=== PATIENT | male | born 1950 | race Caucasian/White ===

== ENCOUNTER 2019-09-19 09:18 | Emergency (ER) | payer MEDICARE, OTHER ==
[2019-09-19 09:29] VITALS: BP 131/66
[2019-09-19] MEDS ORDERED: LISI1TAB25 (09:36)
[2019-09-19] MEDS ORDERED: ATOR40TA70 (09:36)
[2019-09-19] MEDS ORDERED: DOXY100C2 (09:36)
--- NOTE | 2019-09-19 09:38 | ED Lower Extremity ---
General Chief Complaint: Lower Extremity Stated Complaint: RT FOOT INJ Source: patient Exam Limitations: no limitations History of Present Illness Date Seen by Provider: Sep 19, 2019 Time Seen by Provider: 09:33 Initial Comments Heavy piece of iron fell on his right foot yesterday, weighing about 150lbs. No other injury. + pain and swelling. + bruising. Allergies and Home Medications Allergies Coded Allergies: clarithromycin (Verified Allergy, Unknown, weakness, 09/19/19) Home Medications Bacitracin/Polymyxin B Sulfate 28.3 Gm Oint...g., 28.3 GM TP BID Prescribed by: LISSETTE CANTU on 09/19/19 1010 Ibuprofen 800 Mg Tablet, 800 MG PO Q8H PRN for PAIN Prescribed by: LISSETTE CANTU on 09/19/19 1010 Patient Home Medication List Home Medication List Reviewed: Yes Review of Systems Constitutional: no symptoms reported Musculoskeletal: see HPI Skin: see HPI Past Djwpwfk-Otgfyk-Fyhzjy Hx Past Med/Social Hx: Reviewed Nursing Past Med/Soc Hx Patient Social History Recent Foreign Travel: No Contact w/Someone Who Travel: No Physical Exam Vital Signs Vital Signs - First Documented 09/19/19 09:29 Temp 36.7 Pulse 59 Resp 16 B/P (MAP) 131/66 (87) Pulse Ox 98 Capillary Refill : Height, Weight, BMI Height: '" Weight: lbs. oz. kg; BMI Method: General Appearance: WD/WN, no apparent distress Legs: bilateral leg non-tender, bilateral leg normal inspection, bilateral leg normal range of motion, bilateral leg no evidence of injury Ankles: bilateral ankle non-tender, bilateral ankle normal inspection, bilateral ankle normal range of motion, bilateral ankle no evidence of injury Feet: right foot bone tenderness, right foot limited range of motion, right foot pain, right foot soft tissue tenderness, right foot swelling Neurologic/Psychiatric: no motor/sensory deficits, alert, normal mood/affect Skin: ecchymosis (distal right foot and 3-5th toes) Progress/Results/Core Measures Results/Orders My Orders Orders - LISSETTE CANTU DO Foot 3 View Right (09/19/19 09:31) Vital Signs/I&O 09/19/19 09:29 Temp 36.7 Pulse 59 Resp 16 B/P (MAP) 131/66 (87) Pulse Ox 98 Progress Progress Note : Progress Note Advised to be NWB until told otherwise by Ortho. Given Ortho protective shoe (not a boot) and he has his own crutches for use. Given multiple contacts for follow-up and advised to be seen in the next 1 wk. Strongly urged RICE, he declined pain meds. Also encouraged skin care due to swelling and bruising and to watch for skin breakdown. Diagnostic Imaging Diagonstic Imaging: Xray Plain Films/CT/US/NM/MRI: other (right foot) Comments distal 5th MT Fx and prox phalynx Fx's of both 4th and 5th toes Departure Impression Primary Impression: Fracture of foot Qualified Codes: S92.901A - Unspecified fracture of right foot, initial encounter for closed fracture Additional Impression: Fracture of toe Qualified Codes: S92.911A - Unspecified fracture of right toe(s), initial encounter for closed fracture Disposition: HOME, SELF-CARE Condition: Stable Departure-Patient Inst. Decision time for Depature: 10:07 Referrals: SELF,PATRIC DEGROOT (PCP/Family) Primary Care Physician [facility] [address] [place] [address] [facility] Patient Instructions: Foot Fracture (DC), Toe Fracture (DC) Scripts Bacitracin/Polymyxin B Sulfate (Polysporin Ointment) 28.3 Gm Oint...g. 28.3 GM TP BID, #1 TUBE Prov: LISSETTE CANTU DO 09/19/19 Ibuprofen (Ibuprofen) 800 Mg Tablet 800 MG PO Q8H PRN for PAIN, #30 TAB 0 Refills Prov: LISSETTE CANTU DO 09/19/19 LISSETTE CANTU DO Sep 19, 2019 09:37
--- OUTSIDE RECORDS SUMMARY | 2019-09-19 09:45 | XMS REPORT | Continuity of Care Document ---
Demographics Preferred Language Unknown Marital Status Unknown Rastafari Affiliation Unknown Race Unknown Ethnic Group Unknown Author Organization Unknown Address Unknown Phone Unavailable Allergies There is no data. Medications There is no data. Problems There is no data. Procedures There is no data. Results Test Result Range PSA - 07/05/19 09:10 PSA, TOTAL 1.9 ng/mL < OR = 4.0 TSH - 07/05/19 09:10 TSH 3.21 mIU/L 0.40-4.50 Encounters ACCT No. Visit Date/Time Discharge Status Pt. Type Provider Facility Loc./Unit Complaint [id number] 07/05/2019 09:00:00 Document Registration
[2019-09-19] MEDS ORDERED: BACI28.35 TP (10:10)
[2019-09-19] MEDS ORDERED: IBUP-1780 PO (10:10)
--- NOTE | 2019-09-19 12:06 | Diagnostic Imaging Report ---
INDICATION: Dropped a heavy object onto right foot. TIME OF EXAM: 9:46 AM FINDINGS: 3 views of the right foot were obtained. There are multiple fractures present. There is an obliquely oriented fracture of the distal 5th metatarsal without significant displacement or angulation. There is a comminuted fracture at the base of the proximal phalanx of the 5th toe. There also appears to be a fracture of the middle phalanx of the 5th toe as well as the distal phalanx of the 5th toe. No significant displacement is seen. In addition, there is a fracture at the proximal aspect of the proximal phalanx, 4th toe. There is also mid shaft fracture involving the middle phalanx of the 4th toe as well as a mid shaft fracture of the distal phalanx of the 4th toe. The 1st, 2nd and 3rd phalanges appear to be intact. The 1st through 4th metatarsals appear to be intact. The midfoot and hindfoot are unremarkable. There is moderate soft tissue swelling along the dorsum of the foot. IMPRESSION: Fractures involving the 4th and 5th toes as well as the 5th metatarsal, as described. Dictated by: Dictated on workstation # [id number]
== END 2019-09-19 10:16 | disposition home or self-care (01) ==
LOC: ER FS 09:22
DX: S92.514A Nondisplaced fracture of proximal phalanx of right lesser toe(s), initial encounter for closed fracture (principal); S92.524A Nondisplaced fracture of middle phalanx of right lesser toe(s), initial encounter for closed fracture; S92.534A Nondisplaced fracture of distal phalanx of right lesser toe(s), initial encounter for closed fracture; S92.351A Displaced fracture of fifth metatarsal bone, right foot, initial encounter for closed fracture; W22.8XXA Striking against or struck by other objects, initial encounter
CPT/HCPCS: 73630

== ENCOUNTER → 2019-10-10 | Outpatient (CLI) | payer MEDICARE, OTHER ==
[~2019-10-10] MED LIST: ATOR40TA70; BACI28.35 TP; DOXY100C2; IBUP-1780 PO; LISI1TAB25
--- NOTE | 2019-10-10 09:05 | Diagnostic Imaging Report ---
INDICATION: Injury, followup. EXAMINATION: Right foot on 10/10/2019. COMPARISON: 09/19/2019. FINDINGS: The comminuted fractures of the 4th and 5th toes which include all phalanges are fairly similar to the previous examination without significant interval callus formation. The alignment is unchanged. The oblique fracture of the distal 5th metatarsal is also stable without significant callus appreciated. There is a vague lucency noted along the dorsum of the navicular, likely a chronic process, perhaps a spur; however, correlation for any point tenderness is recommended. There is cast-like material overlying the foot somewhat obscuring fine bony detail. IMPRESSION: 1. Stable appearing 4th and 5th phalangeal fractures. 2. Stable 5th metatarsal fracture. 3. Lucency along the navicular, see above description. Dictated by: Dictated on workstation # [id number]
== END ==
LOC: RAD FS 08:47
PROVIDERS: ATTEND Nurse Practitioner
DX: S92.421D Displaced fracture of distal phalanx of right great toe, subsequent encounter for fracture with routine healing (principal); S92.521D Displaced fracture of middle phalanx of right lesser toe(s), subsequent encounter for fracture with routine healing; S92.511D Displaced fracture of proximal phalanx of right lesser toe(s), subsequent encounter for fracture with routine healing; S92.352D Displaced fracture of fifth metatarsal bone, left foot, subsequent encounter for fracture with routine healing
CPT/HCPCS: 73630

== ENCOUNTER → 2019-11-10 | Outpatient (CLI) | payer MEDICARE, OTHER ==
--- NOTE | 2019-11-10 09:32 | Diagnostic Imaging Report ---
INDICATION: Follow-up right foot injury. Time of exam 8:37 AM Correlation is made with prior radiograph from 10/10/2019. Fractures involving the proximal, middle and distal phalanges of the 4th and 5th toes are again noted. Fracture lines remain clearly visible. No significant callus formation is seen. The obliquely oriented fracture of the distal 5th metatarsal is also clearly visible without significant callus formation. No other fractures are identified. Midfoot and hindfoot are unremarkable. IMPRESSION: No significant change in the fractures involving the 4th and 5th toes as well as the 5th metatarsal when compared with exam one month earlier. Fracture lines remain clearly visible. No significant callus formation is seen. Dictated by: Dictated on workstation # [id number]
== END ==
LOC: RAD FS 08:29
PROVIDERS: ATTEND Nurse Practitioner
DX: S92.351D Displaced fracture of fifth metatarsal bone, right foot, subsequent encounter for fracture with routine healing (principal); S92.911D Unspecified fracture of right toe(s), subsequent encounter for fracture with routine healing; S97.81XD Crushing injury of right foot, subsequent encounter; X58.XXXD Exposure to other specified factors, subsequent encounter
CPT/HCPCS: 73630

== ENCOUNTER 2019-11-21 07:33 | Outpatient (RCR) | payer MEDICARE, OTHER ==
[~2019-11-21] VITALS: Ht 187 cm; Wt 113.6 kg
[~2019-11-21 07:33] MED LIST changes: +ASPI-586 PO; -ATOR40TA70; +ATOR40TA70 PO; -DOXY100C2; +DOXY100C2 PO; +FISH1CAP15 PO; +GINK120C PO; +LISI2.5T PO; +UBID100C17 PO
== END 2019-11-21 14:52 | disposition home or self-care (01) ==
LOC: PREOP 07:33
PROVIDERS: ATTEND Podiatrist Foot & Ankle Surgery
DX: Z01.812 Encounter for preprocedural laboratory examination (principal); Z11.59 Encounter for screening for other viral diseases; S92.351A Displaced fracture of fifth metatarsal bone, right foot, initial encounter for closed fracture; S92.501A Displaced unspecified fracture of right lesser toe(s), initial encounter for closed fracture
CPT/HCPCS: 87635

== ENCOUNTER 2019-11-25 11:27 | Day surgery (SDC) | payer MEDICARE, OTHER ==
[2019-11-25] VITALS (11 sets, daily range): BP systolic 138–161; BP diastolic 66–79
[~2019-11-25] VITALS: Ht 187 cm; Wt 113.6 kg
[2019-11-25] MEDS ORDERED: ceFAZolin INJECTION 1,000 MG in WATER (STERILE) FOR INJECTION 10 ML IV ONE (11:45)
[2019-11-25] MEDS: LACTATED RINGERS 1,000 ML IV PRN ×2 (11:55→14:30)
[2019-11-25] MEDS ORDERED: LIDOCAINE 1% INJ 20 ML 20 ML VIAL ONE (12:56)
[2019-11-25] MEDS ORDERED: BUPIVACAINE 0.5% 30 ML (SENSORCAINE) VIAL ONE (12:56)
[2019-11-25] MEDS ORDERED: ONDANSETRON 4 MG/2 ML (SDV) Z0FRAN ONE (13:22)
[2019-11-25] MEDS ORDERED: proPOfol 200 MG/20 ML (DIPRIVAN) VIAL IV ONE (13:22)
[2019-11-25] MEDS ORDERED: LIDOCAINE PF 2% 5 ML (XYLOCAINE) VIAL ONE (13:22)
[2019-11-25] MEDS ORDERED: SEVOFLURANE (ULTANE) 15 ML INHAL SOLN ONE (13:24)
[2019-11-25] MEDS ORDERED: MIDAZOLAM 2 MG/2 ML (VERSED) VIAL ONE (13:24)
[2019-11-25] MEDS ORDERED: fentaNYL INJECTION 100 MCG/2 ML AMP ONE ×2 (13:24→15:13)
--- NOTE | 2019-11-25 13:36 | Progress Note-Pre Operative ---
Pre-Operative Progress Note H&P Reviewed The H&P was reviewed, patient examined and no changes noted. Date Seen by Provider: Nov 25, 2019 Time Seen by Provider: 13:36 Date H&P Reviewed: Nov 25, 2019 Time H&P Reviewed: 13:36 Pre-Operative Diagnosis: Fracture of the right 5th metatarsal, 4th and 5th digits SLAVA ABEBE DPM Nov 25, 2019 13:36
--- OUTSIDE RECORDS SUMMARY | 2019-11-25 15:15 | XMS REPORT | Continuity of Care Document ---
Author Organization Unknown Address Unknown Phone Unavailable Allergies Active Description Code Type Severity Reaction Onset Reported/Identified Relationship to Patient Clinical Status Yes clarithromycin [id number] Dr blanchard Allergy Unknown weakness 09/19/[id number] blanchard Allergy Mild weakness 11/17/2019 Medications There is no data. Problems Date Dx Coded Attending Type Code Diagnosis Diagnosed By 05/21/1451 MIS DPM, SLAVA Q Ot S92.351A DISP FX OF FIFTH METATARSAL BONE, RIGHT 05/21/1451 MIS DPM, SLAVA Q Ot S92.501A DISPLACED UNSP FRACTURE OF RIGHT LESSER 05/21/1451 MIS DPM, SLAVA Q Ot Z01.812 ENCOUNTER FOR PREPROCEDURAL LABORATORY E 05/21/1451 MIS DPM, SLAVA Q Ot Z11. 59 ENCOUNTER FOR SCREENING FOR OTHER VIRAL 09/19/2019 ROVENSTINE DO, LISSETTE Mcelroy Ot M79.671 PAIN IN RIGHT FOOT 09/19/2019 ROVENSTINE DO, LISSETTE Mcelroy Ot S92.351A DISP FX OF FIFTH METATARSAL BONE, RIGHT 09/19/2019 ROVENSTINE DO, LISSETTE Mcelroy Ot S92.514A NONDISP FX OF PROXIMAL PHALANX OF RIGHT 09/19/2019 ROVENSTINE DO, LISSETTE Mcelroy Ot S92.524A NONDISP FX OF MIDDLE PHALANX OF RIGHT LE 09/19/2019 ROVENSTINE DO, LISSETTE Mcelroy Ot S92.534A NONDISP FX OF DISTAL PHALANX OF RIGHT LE 09/19/2019 ROVENSTINE DO, LISSETTE Mcelroy Ot W22.8XXA STRIKING AGAINST OR STRUCK BY OTHER OBJE 09/20/2019 ROVENSTINE DO, LISSETTE Mcelroy Ot M79.671 PAIN IN RIGHT FOOT 09/20/2019 ROVENSTINE DO, LISSETTE Mcelroy Ot S92.351A DISP FX OF FIFTH METATARSAL BONE, RIGHT 09/20/2019 ROVENSTINE DO, LISSETTE L Ot S92.514A NONDISP FX OF PROXIMAL PHALANX OF RIGHT 09/20/2019 ROVENSTINE DO, LISSETTE L Ot S92.524A NONDISP FX OF MIDDLE PHALANX OF RIGHT LE 09/20/2019 ROVENSTINE DO, LISSETTE L Ot S92.534A NONDISP FX OF DISTAL PHALANX OF RIGHT LE 09/20/2019 ROVENSTINE DO, LISSETTE Lilibeth Ot W22.8XXA STRIKING AGAINST OR STRUCK BY OTHER OBJE 10/12/2019 JOSE BANEGAS Ot S92.352D DISP FX OF 5TH METATARSAL BONE, L FT, 7T 10/12/2019 JOSE BANEGAS Ot S92.421D DISP FX OF DIST PHALANX OF R GREAT TOE, 10/12/2019 JOSE BANEGAS Ot S92.511D DISP FX OF PROX PHALANX OF R LESS TOE(S) 10/12/2019 JOSE BANEGAS Ot S92.521D DISP FX OF MIDDLE PHALANX OF RIGHT LESSE 11/01/2019 JOSE BANEGAS Ot S92.352D DISP FX OF 5TH METATARSAL BONE, L FT, 7T 11/01/2019 JOSE BANEGAS Ot S92.421D DISP FX OF DIST PHALANX OF R GREAT TOE, 11/01/2019 JOSE BANEGAS Ot S92.511D DISP FX OF PROX PHALANX OF R LESS TOE(S) 11/01/2019 JOSE BANEGAS Ot S92.521D DISP FX OF MIDDLE PHALANX OF RIGHT LESSE 11/15/2019 JOSE BANEGAS Ot S92.351D DISP FX OF 5TH METATARSAL BONE, R FT, 7T 11/15/2019 JOSE BANEGAS Ot S92.911D UNSP FRACTURE OF RIGHT TOE(S), SUBS FOR 11/15/2019 JOSE BANEGAS Ot S97.81XD CRUSHING INJURY OF RIGHT FOOT, SUBSEQUEN 11/15/2019 JOSE BANEGAS Ot X58.XXXD EXPOSURE TO OTHER SPECIFIED FACTORS, SUB 11/17/2019 JOSE BANEGAS Ot S92.351D DISP FX OF 5TH METATARSAL BONE, R FT, 7T 11/17/2019 JOSE BANEGAS Ot S92.911D UNSP FRACTURE OF RIGHT TOE(S), SUBS FOR 11/17/2019 JOSE BANEGAS Ot S97.81XD CRUSHING INJURY OF RIGHT FOOT, SUBSEQUEN 11/17/2019 JOSE BANEGAS Ot X58.XXXD EXPOSURE TO OTHER SPECIFIED FACTORS, SUB 11/21/2019 MIS DPM, SLAVA Q Ot S92.351A DISP FX OF FIFTH METATARSAL BONE, RIGHT 11/21/2019 MIS DPM, SLAVA Q Ot S92.501A DISPLACED UNSP FRACTURE OF RIGHT LESSER 11/21/2019 MIS DPM, SLAVA Q Ot Z01.812 ENCOUNTER FOR PREPROCEDURAL LABORATORY E 11/21/2019 MIS DPM, SLAVA Q Ot Z11. 59 ENCOUNTER FOR SCREENING FOR OTHER VIRAL 11/25/2019 JOSE BANEGAS Ot S92.352D DISP FX OF 5TH METATARSAL BONE, L FT, 7T 11/25/2019 JOSE BANEGAS Ot S92.421D DISP FX OF DIST PHALANX OF R GREAT TOE, 11/25/2019 JOSE BANEGASP Ot S92.511D DISP FX OF PROX PHALANX OF R LESS TOE(S) 11/25/2019 JOSE BANEGAS Ot S92.521D DISP FX OF MIDDLE PHALANX OF RIGHT LESSE 11/25/2019 JOSE BANEGAS Ot S92.351D DISP FX OF 5TH METATARSAL BONE, R FT, 7T 11/25/2019 JOSE BANEGAS Ot S92.911D UNSP FRACTURE OF RIGHT TOE(S), SUBS FOR 11/25/2019 JOSE BANEGAS Ot S97.81XD CRUSHING INJURY OF RIGHT FOOT, SUBSEQUEN 11/25/2019 JOSE BANEGAS Ot X58.XXXD EXPOSURE TO OTHER SPECIFIED FACTORS, SUB Procedures There is no data. Results Test Result Range PSA - 07/05/19 09:10 PSA, TOTAL 1.9 ng/mL < OR = 4.0 TSH - 07/05/19 09:10 TSH 3.21 mIU/L 0.40-4.50 Coronavirus SARS-CoV-2 SO 2019 - 0 13:12 Coronavirus Ab [Units/volume] in Serum Negative Negative Encounters ACCT No. Visit Date/Time Discharge Status Pt. Type Provider Facility Loc./Unit Complaint [id number] 11/18/2019 14:15:00 11/18/2019 23:59: 59 CLS Outpatient [facility] [id number] 07/05/2019 09:00:00 Document Registration [id number] 11/21/2019 07:33:00 14:52:00 DIS Outpatient SLAVA ABEBE DPM [facility] PREOP ORIF RT. 5TH METATARSAL AND 4TH AND 5TH TOES [id number] 11/10/2019 08:29:00 23:59:59 CLS Outpatient JOSE BANEGAS [facility] RAD FS CRUSHING INJURY OF RIG HT FOOT [id number] 10/10/2019 08:47:00 23:59:59 CLS Outpatient JOSE BANEGAS [facility] RAD FS DISPLACED FX OF DISTAL PHALANC OF RIGHT GREAT TOE [id number] 09/19/2019 09:22:00 10:16:00 DIS Emergency LISSETTE CANTU DO [facility] ER FS RT FOOT INJ [id number] 11/25/2019 11:27:[address] Outpatient SLAVA ABEBE DPM [facility] SDC ORIF RT. 5TH METATARSAL 4T H 5TH TOES
[2019-11-25] MEDS ORDERED: SILVER SULFADIAZINE 50 GM CREAM ONE (15:27)
[2019-11-25] MEDS ORDERED: LACTATED RINGERS 1,000 ML IV SCH (16:13)
--- NOTE | 2019-11-25 16:13 | Progress Note-Post Operative ---
Post-Operative Progess Note Surgeon (s)/Roofing Sales Representative (s) Surgeon SLAVA ABEBE DPM Roofing Sales Representative: none Pre-Operative Diagnosis Fracture of the right 5th metatarsal, 4th and 5th digits Post-Operative Diagnosis same Procedure & Operative Findings Date of Procedure 11/25/19 Procedure Performed/Findings ORIF of right 5th metatarsal Anesthesia Type General Estimated Blood Loss Estimated blood loss (mL): Minimal Specimens/Packing Specimens Removed None SLAVA ABEBE DPM Nov 25, 2019 16:13
[2019-11-25] MEDS ORDERED: HYDROcodone/APAP 5 MG/325 MG (LORTAB) TAB PO PRN (16:15)
[2019-11-25] MEDS ORDERED: ONDANSETRON 4 MG/2 ML (SDV) Z0FRAN IVP PRN (16:15)
[2019-11-25] MEDS ORDERED: HYDROmorphone 2 MG/ML VIAL (DILAUDID) IV ONE (16:15)
[2019-11-25] MEDS ORDERED: HYDR-83 PO (16:17)
--- NOTE | 2019-11-25 16:32 | Anesthesia-General Post-Op ---
General Patient Condition Mental Status/LOC: Same as Preop Cardiovascular: Satisfactory Nausea/Vomiting: Absent Respiratory: Satisfactory Pain: Controlled Complications: Absent Post Op Complications Complications None Follow Up Care/Instructions Patient Instructions None needed. Anesthesia/Patient Condition Patient Condition Patient is doing well, no complaints, stable vital signs, no apparent adverse anesthesia problems. No complications reported per nursing. D/C home per [facility] Criteria: Yes RHEA DELA CRUZ MANAGER MARKET Nov 25, 2019 16:32
[2019-11-25] MEDS ORDERED: HYDROcodone/APAP 5 MG/325 MG (LORTAB) TAB ONE (16:55)
--- NOTE | 2019-11-25 18:00 | NUR ---
DR. ABEBE CALLED REGARDING PT'S C/O OF PAIN NOT BEING "TOUCHED" AFTER TAKING HYDROCODONE PRESCRIBED. DR. ABEBE TO RETURN TO [facility] TO REWRITE A NEW PAIN PRESCRIPTION FOR PATIENT.
--- NOTE | 2019-11-25 18:25 | NUR ---
DR. ABEBE AT PT'S BEDSIDE. NEW PRESCRIPTION GIVEN TO PT FOR PERCOCET AND OLD PRESCRIPTION FOR HYDROCODONE VOIDED AND DISCARDED. PT REPORTS READY TO DISCHARGE TO HOME. PT REPORTS THAT HE HAD PREVIOUSLY REVIEWED DISCHARGE INSTRUCTIONS W/ Tierney EDMONDS RN, VERBALIZES UNDERSTANDING. PT DISCHARGED TO HOME VIA W/C TO PRIVATE CAR ACCOMPANIED BY .
--- NOTE | 2019-11-25 19:03 | Diagnostic Imaging Report ---
INDICATION: Postop foot. COMPARISON: 11/10/2019. FINDINGS: Frontal and lateral radiographic views of the right foot were obtained and show postsurgical changes of interval ORIF of the distal fifth metatarsal. Orthopedic sideplate and screws are noted. Fracture of the distal fifth metatarsal is again identified. Multiple comminuted fracture fragments are noted. Alignment is improved postoperatively. Note however is also made of persisting gross deformity of the fifth proximal phalanx with medial subluxation at the fifth metatarsophalangeal joint space. There is also deformity of the middle and distal fifth phalanges. Old deformities of the fourth proximal middle and distal phalanges is also noted consistent with old fractures. No unexpected radiopaque foreign bodies are seen. IMPRESSION: 1. Postsurgical changes to the fifth metatarsal as above. 2. Chronic appearing deformities of the fourth toes with dislocation at the fifth metatarsophalangeal joint space. Dictated by: Dictated on workstation # [id number]
--- NOTE | 2019-11-25 19:21 | Diagnostic Imaging Report ---
INDICATION: ORIF. COMPARISON: 11/10/2019 Total fluoroscopy time: 17.3 seconds Total number of fluoroscopic images saved: 2 FINDINGS: Multiple intraoperative image intensifier views of the right foot were obtained during ORIF. Images provided show orthopedic side plate and screws traversing the lateral distal margins of the 5th metatarsal. Note is made of gross deformity of the 5th proximal phalanx as well. Additionally, there does appear to be medial displacement of the 5th proximal phalanx. Please note, interpreting radiologist was not present during the procedure. IMPRESSION: 1. Fluoroscopic guidance provided during ORIF. Dictated by: Dictated on workstation # [id number]
--- NOTE | 2019-11-26 03:54 | OPERATIVE REPORT ---
DATE OF SERVICE: 11/25/2019 SURGEON: Ana Hernandez DPM PREOPERATIVE DIAGNOSIS: Fracture of the right fifth metatarsal and fourth and fifth digits. POSTOPERATIVE DIAGNOSIS: Fracture of the right fifth metatarsal and fourth and fifth digits. PROCEDURE PERFORMED: Open reduction and internal fixation of the right fifth metatarsal. WOUND CLASS: Clean. ANESTHESIA: General. HEMOSTASIS: Pneumatic thigh tourniquet at 300 mmHg. INDICATIONS: This 69-year-old male presents with a nonhealing fracture of the right fifth metatarsal. Conservative therapy has met with unsatisfactory results. He has been compliant with nonweightbearing for an extended period of time and is agreeable to surgical intervention after risks and complications were discussed with the patient. He understands that with a soft tissue injury like this, there is a possibility of continued breakdown of skin or other soft tissue. He also understands that there is no guarantee that the osseous healing will take the normal four to six weeks. He understands that he still may have need for further surgery, bone stimulator or other assistance in bone healing, if he heals at all. DESCRIPTION OF PROCEDURE: The patient was brought back to the operating table, placed in secure supine position. Appropriate timeout was performed. A pneumatic thigh tourniquet was placed on the right lower extremity over several layers of padding. General anesthetic was then induced. The right foot was prepped and draped in normal sterile manner. The right foot was then elevated, allowed to exsanguinate after which the tourniquet was inflated to 300 mmHg. Attention was then directed to the lateral aspect of the right fifth ray where a 5 cm longitudinal linear incision was created. The incision was deepened down the same plane with great care to identify and retract all vital neurovascular structures. There was significant soft tissue scarring as dissection was carried out to the lateral aspect of the fifth metatarsal where the soft tissue envelope was carefully removed away from the bone. Once this was done, there was quite a bit more comminution to the distal fracture, then was visualized with plain x-rays. Utilizing [employer] surgical instrumentation, 2.2 locking screw plate was applied to the lateral aspect of the distal fifth metatarsal. It was a semi-tubular plate what they call a short lesser met Z plate. The proximal screws were applied with standard technique with 12 mm of length. Once the proximal portion of the plate was secured, the distal fragment was pulled out to length. Unfortunately, the soft tissue envelope has scarred down so significantly that capital fragment was not able to come out to length. It was then decided to do an extensor tendon lengthening. In hopes not to compromise any further soft tissue envelope, a second incision right over the extensor tendon was made to the fifth digit of approximately 1.5 cm. The incision was deepened down bluntly down to the extensor tendon where a Z slide lengthening was performed. This allowed for a little bit more mobility of the soft tissue envelope. The area was flushed with copious amounts of normal saline. The capital fragment was held in place and was confirmed by intraoperative C-arm evaluation. Next, two distal screws were applied to the capital fragment, one was 16 mm of length and the other was 18 mm, all locking screws. A third proximal screw was 16 mm of length. Prior to the application of the distal screws, the medullary canal as well as any deficits were packed with CellRight allograft and the product code is [id number], expiration of 06/09/2024. Approximately 2 mL of the allograft was packed into the deficit of the fifth metatarsal. The area was gently irrigated after all the packing after which the soft tissue envelope was reapproximated utilizing 3-0 Vicryl to the lateral and dorsal incisions followed by skin closure with 4-0 Prolene in a horizontal mattress and interrupted simple type stitch. Tourniquet was released noting appropriate cap refill time to the surgical sites. Postoperative injection consisted of 10 mL of 1:1 mixture of 1% Xylocaine, 0.5% Marcaine injected in local infusion to the surgical sites. Postoperative dressing consisted of Betadine-soaked Adaptic to the surgical dorsal and lateral incisions. Silvadene cream was applied to the dorsal wound of the right foot. The areas were then covered with sterile 4 x 4's, Kerlix, all secured with a Coban wrap. The patient is to be nonweightbearing on the right lower extremity. He is to continue with wound care as home health will continue to come out and address the dorsal wound, which is almost completely filled in at this point. The patient will put Betadine and a sterile dressing on the remainder of the surgical wound. The patient is to follow up in my office in 10 days' period of time or sooner if necessary. Job ID: [id number] DocumentID: [id number] Dictated Date: 11/25/2019 16:27:51 Fur Scraper Date: 11/26/2019 03:29:33 Dictated By: TATIANA THOMPSON
== END 2019-11-25 18:30 | disposition home or self-care (01) ==
LOC: SDC 11:27
PROVIDERS: ATTEND Podiatrist Foot & Ankle Surgery
DX: S92.351A Displaced fracture of fifth metatarsal bone, right foot, initial encounter for closed fracture (principal); S92.341A Displaced fracture of fourth metatarsal bone, right foot, initial encounter for closed fracture; E78.2 Mixed hyperlipidemia; E66.9 Obesity, unspecified; I11.9 Hypertensive heart disease without heart failure; I71.2 Thoracic aortic aneurysm, without rupture; Z88.1 Allergy status to other antibiotic agents; Z79.82 Long term (current) use of aspirin; Z68.32 Body mass index [BMI] 32.0-32.9, adult; Z79.899 Other long term (current) drug therapy
CPT/HCPCS: 73620; 76000; 87081

== ENCOUNTER → 2021-03-11 | Outpatient (CLI) | payer MEDICARE, OTHER ==
[~2021-03-11] MED LIST changes: +ACHD5005 PO; -LISI1TAB25; +LISI1TAB46
== END ==
LOC: CARD 11:00
PROVIDERS: ATTEND Family Medicine
DX: I35.1 Nonrheumatic aortic (valve) insufficiency (principal); I51.7 Cardiomegaly
CPT/HCPCS: 93306